=== PATIENT | male | born 1940 | race Caucasian/White ===

== ENCOUNTER 2017-01-13 06:26 | Day surgery (SDC) | payer MEDICARE, OTHER ==
[~2017-01-13] VITALS: Ht 181.6 cm; Wt 67.3 kg
[2017-01-13] VITALS (11 sets, daily range): BP systolic 114–139; BP diastolic 49–61; PULSE 51–77; TEMP 97.5–97.6
[2017-01-13 06:56] LABS: HEMATOCRIT 41.9 % (42.0-52.0); MEAN CELL VOLUME 90 fl (80.0-100.0); MEAN CORPUSCULAR HEMOGLOBIN 30 pg (27.0-31.0); MEAN CORPUSCULAR HGB CONC 33 g/dl (33.0-37.0); PLATELET COUNT 207 K/mm3 (130-400); RED BLOOD COUNT 4.65 M/mm3 (4.20-5.60); WHITE BLOOD COUNT 8.7 K/mm3 (4.8-10.8)
[2017-01-13 07:08] LABS: CREATININE, serum 1.85 mg/dL (0.66-1.25)
[2017-01-13 07:31] LABS: PROTHROMBIN TIME 10.8 SECONDS (9.7-12.8)
[2017-01-13] MEDS ORDERED: LIPITOR 10MG10 MG PO (08:48)
[2017-01-13] MEDS ORDERED: TOPROL XL100 MG PO (08:53)
[2017-01-13] MEDS ORDERED: PRIL40 PO (08:55)
[2017-01-13] MEDS ORDERED: LASIX 40MG TABL40 MG PO (08:56)
[2017-01-13] MEDS ORDERED: PROSCAR 5MG5 MG PO (08:57)
[2017-01-13] MEDS ORDERED: PRINIVIL20 MG PO (08:58)
[2017-01-13] MEDS ORDERED: LANOXIN 0.120.125 MG PO (08:58)
[2017-01-13] MEDS ORDERED: ALDACTONE 25MG25 M1 PO (08:59)
[2017-01-13] MEDS ORDERED: NORVASC2.5 MG PO (08:59)
[2017-01-13] MEDS ORDERED: PRADAXA75 MG PO (09:00)
== END 2017-01-13 15:38 | disposition home or self-care (01) ==
LOC: COL.CAR 06:26
PROVIDERS: Radiology Diagnostic Radiology
DX: I70.212 Atherosclerosis of native arteries of extremities with intermittent claudication, left leg (principal); I73.9 Peripheral vascular disease, unspecified; I25.10 Atherosclerotic heart disease of native coronary artery without angina pectoris; E78.5 Hyperlipidemia, unspecified; I48.91 Unspecified atrial fibrillation; I13.0 Hypertensive heart and chronic kidney disease with heart failure and stage 1 through stage 4 chronic kidney disease, or unspecified chronic kidney disease; N18.3 Chronic kidney disease, stage 3 (moderate); I50.32 Chronic diastolic (congestive) heart failure; I50.84 End stage heart failure; K21.9 Gastro-esophageal reflux disease without esophagitis; I51.7 Cardiomegaly; D64.9 Anemia, unspecified; F17.220 Nicotine dependence, chewing tobacco, uncomplicated; M19.90 Unspecified osteoarthritis, unspecified site; Z87.891 Personal history of nicotine dependence; Z79.01 Long term (current) use of anticoagulants
CPT/HCPCS: C1724; C1725; C1760; C1769; C1894; C2623; J1644; J2704; J3010; Q9967